=== PATIENT | female | born 1990 | race African-American/Black ===

== ENCOUNTER 2021-02-03 15:11 | Emergency (ER) | payer OTHER ==
--- NOTE | 2021-02-03 15:31 | EDM.PDOC ---
ED HPI GENERAL MEDICAL PROBLEM - General Chief Complaint: General Stated Complaint: "tired" Time Seen by Provider: 02/03/21 15:11 Source of Information: Reports: Patient, Old Records ([facility] EMR. No paper hospital chart available.) History Limitations: Reports: No Limitations - History of Present Illness INITIAL COMMENTS - FREE TEXT/NARRATIVE: The patient drove herself to the emergency room via private automobile for evaluation of multiple nonspecific complaints, including moderate nonspecific fatigue, arthralgias, etc., which occurred at work at 3 AM this past evening with the patient leaving work early. She has also had some nonspecific chills since that time with a temperature of 98.4 degrees. Her last menses a few days ago was somewhat heavy, however this did resolve after she took aspirin at that time. She denies any known exposure to infection. She also had some nonspecific dysuria and urinary frequency a couple of days ago, however the symptoms have since resolved. No recent history of abdominal pain, heartburn, nausea, diarrhea, melena, gross hematochezia, or any food intolerance, including fatty foods, etc. with normal bowel movement yesterday. The patient also denies any recent fever, cough, wheezing, dyspnea, etc.. Onset: Today, Gradual, Other (As above) Onset Date: 02/03/21 Onset Time: 03:00 Duration: Constant, Getting Worse Location: Reports: Generalized Quality: Reports: Ache Severity: Moderate Improves with: Reports: None Worsens with: Reports: None Context: Reports: Other (As above). Denies: Sick Contact, Trauma Associated Symptoms: Reports: Fever/Chills, Weakness (Nonspecific). 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 [No Known Home Meds] 09/02/20 [History] Past Medical History HYDRANT SETTER History: Reports: Dysfunctional Uterine Bleeding, . Denies: Spontaneous : 2 Para: 2 LMP (Approximate): Other (See Below) Other HYDRANT SETTER History: LMP 1 week ago. Full term without complications during pregnancies or deliveries Musculoskeletal History: Reports: Arthritis, Back Pain, Chronic, Osteoarthritis - History Comment History Comment: Occasional dehydration to not drink enough fluids. Social & Family History - Tobacco Use Tobacco Use Status *Q: Never Tobacco User Used Tobacco, but Quit: No Smoking Cessation Information Provided To Patient: No Second Hand Smoke Exposure: No Second Hand Smoke Education Provided: No - Caffeine Use Caffeine Use: Reports: Tea (1 cup/week). Denies: Coffee, Energy Drinks, Soda - Alcohol Use Alcohol Use History: No Days Per Week of Alcohol Use: 0 Number of Drinks Per Day: 0 Number of Drinks Per Day Comment: No previous DWIs, problems with alcohol abuse, etc. Total Drinks Per Week: 0 Alcohol Use in Last Twelve Months: No - Recreational Drug Use Recreational Drug Use: No Drug Use in Last 12 Months: No Recreational Drug Type: Denies: Amphetamines (Speed), Cocaine, Flunitrazepam, Heroin, Inhalants (Glues, Solvents, Aerosols), Marijuana/Hashish, Methamphetamine, Morphine, Oxycodone - Living Situation & Occupation Occupation: Employed ([employer]) ED ROS GENERAL - Review of Systems Review Of Systems: Comprehensive ROS is negative, except as noted in HPI. ED EXAM, GENERAL - Physical Exam Exam: See Below Exam Limited By: No Limitations General Appearance: Alert, WD/WN, No Apparent Distress, Anxious (Moderate) Eye Exam: Bilateral Eye: EOMI, Normal Inspection (No vertigo or nystagmus), PERRL Ears: Normal External Exam, Normal Canal, Hearing Grossly Normal, Normal TMs Nose: Normal Inspection, Normal Mucosa, No Blood Throat/Mouth: Normal Inspection, Normal Lips, Normal Teeth, Normal Gums, Normal Oropharynx, Normal Voice, No Airway Compromise. No: Dysphagia, Perioral Cyanosis Head: Atraumatic, Normocephalic. No: Facial Swelling, Facial Tenderness, Sinus Tenderness Neck: Normal Inspection, Supple, Non-Tender, Full Range of Motion. No: Carotid Bruit, Lymphadenopathy (L), Lymphadenopathy (R), Thyromegaly Respiratory/Chest: No Respiratory Distress, Lungs Clear, Normal Breath Sounds, No Accessory Muscle Use, Chest Non-Tender. No: Stridor, Accessory Muscle Use, Retractions Cardiovascular: Normal Peripheral Pulses, Regular Rate, Rhythm, No Edema, No Gallop, No JVD, No Murmur, No Rub. No: Gallop/S3, Gallop/S4, Friction Rub Peripheral Pulses: 2+: Radial (L), Radial (R) GI/Abdominal: Normal Bowel Sounds, Soft, Non-Tender, No Organomegaly, No Distention, No Abnormal Bruit, No Mass. No: Guarding (Female) Exam: Deferred Rectal (Female) Exam: Deferred Back Exam: Normal Inspection, Full Range of Motion. No: CVA Tenderness (L), CVA Tenderness (R), Muscle Spasm Extremities: Normal Inspection, Normal Range of Motion, Non-Tender, No Pedal Edema, Normal Capillary Refill. No: Jb's Sign Neurological: Alert, Oriented, CN II-XII Intact, Normal Cognition, Normal Gait, No Motor/Sensory Deficits Psychiatric: Anxious (Moderate), Depressed Mood (Mild to moderate) Skin Exam: Warm, Dry, Intact, Normal Color, No Rash. No: Diaphoretic, Wound/Incision Lymphatic: No Adenopathy Course - Vital Signs Last Recorded V/S: Last Vital Signs Temp 36.6 C 02/03/21 15:11 Pulse 88 02/03/21 15:11 Resp 16 02/03/21 15:11 BP 123/77 02/03/21 15:11 Pulse Ox 99 02/03/21 15:11 Vital Signs - 24 hr 02/03/21 15:11 Temperature [ 36.6 C Temporal] Pulse, 88 Peripheral [ Pulse Oximetry] Respiratory 16 Rate Blood Pressure 123/77 [Upper] O2 Sat by Pulse 99 Oximetry - Orders/Labs/Meds Orders: Active Orders 24 hr Category Date Time Status CULTURE URINE [RM] Routine Lab 02/03/21 15:36 Received Isolation [COMM] Routine Oth 02/03/21 15:32 Active Obtain Past Medical Record [OM.PC] Routine Oth 02/03/21 15:33 Active Peripheral IV Insertion Adult [OM.PC] Routine Oth 02/03/21 15:33 Ordered Labs: Laboratory Tests 02/03/21 02/03/21 02/03/21 Range/Units 14:30 15:47 15:47 WBC 4.3 (4.0-10.2) K/uL RBC 4.50 (3.77-5.09) M/uL Hgb 12.3 (11.7-15.5) g/dL Hct 38.5 (34.0-46.0) % MCV 85.6 (84.0-98.0) fL MCH 27.3 L (28.2-33.3) pg MCHC 31.9 (31.7-36.0) g/dL RDW 13.1 (11.2-14.1) % Plt Count 165 (150-350) K/uL Neut % (Auto) 23.5 L (45.0-80.0) % Lymph % (Auto) 59.3 H (10.0-50.0) % Reagan % (Auto) 12.0 (2.0-14.0) % Eos % (Auto) 4.7 (0.0-5.0) % Baso % (Auto) 0.5 (0.0-2.0) % Neut # (Auto) 1.00 L (1.40-7.00) K/uL Lymph # (Auto) 2.52 (0.50-3.50) K/uL Reagan # (Auto) 0.51 (0.00-1.00) K/uL Eos # (Auto) 0.20 (0.00-0.50) K/uL Baso # (Auto) 0.02 (0.00-0.20) K/uL PT 10.2 (9.5-12.0) SEC INR 1.0 APTT 25.4 (24.5-32.8) SEC Sodium (136-145) mmol/L Potassium (3.5-5.1) mmol/L Chloride (98-107) mmol/L Carbon Dioxide (21.0-32.0) mmol/L BUN (7-18) mg/dL Creatinine (0.51-1.17) mg/dL Est Cr Clr Drug Dosing Estimated GFR (MDRD) mL/min Glucose (70-99) mg/dL Calcium (8.5-10.1) mg/dL Total Bilirubin (0.2-1.0) mg/dL AST (15-37) U/L ALT (12-78) U/L Alkaline Phosphatase (46-116) IU/L Total Protein (6.4-8.2) g/dL Albumin (3.4-5.0) g/dL Amylase (25-115) U/L Lipase (73-393) U/L TSH, Ultra Sensitive (0.358-3.740) mIU/mL HCG, Qual (NEGATIVE) Specimen Type Urine Color Urine Appearance Urine pH (5.0-9.0) Ur Specific Homer (1.005-1.030) Urine Protein (NEGATIVE) mg/dL Urine Glucose (UA) (NEGATIVE) mg/dL Urine Ketones (NEGATIVE) mg/dL Urine Occult Blood (NEGATIVE) Urine Nitrite (NEGATIVE) Urine Bilirubin (NEGATIVE) Urine Urobilinogen (0.2-1.0) E.U./dL Ur Leukocyte Esterase (NEGATIVE) Urine RBC /HPF Urine WBC /HPF Ur Epithelial Cells /LPF Urine Bacteria (NONE TO FEW) /HPF SARS-CoV-2 RNA (AIRAM) Negative (NEGATIVE) 02/03/21 02/03/21 02/03/21 Range/Units 15:47 15:47 15:51 WBC (4.0-10.2) K/uL RBC (3.77-5.09) M/uL Hgb (11.7-15.5) g/dL Hct (34.0-46.0) % MCV (84.0-98.0) fL MCH (28.2-33.3) pg MCHC (31.7-36.0) g/dL RDW (11.2-14.1) % Plt Count (150-350) K/uL Neut % (Auto) (45.0-80.0) % Lymph % (Auto) (10.0-50.0) % Reagan % (Auto) (2.0-14.0) % Eos % (Auto) (0.0-5.0) % Baso % (Auto) (0.0-2.0) % Neut # (Auto) (1.40-7.00) K/uL Lymph # (Auto) (0.50-3.50) K/uL Reagan # (Auto) (0.00-1.00) K/uL Eos # (Auto) (0.00-0.50) K/uL Baso # (Auto) (0.00-0.20) K/uL PT (9.5-12.0) SEC INR APTT (24.5-32.8) SEC Sodium 140 (136-145) mmol/L Potassium 3.5 (3.5-5.1) mmol/L Chloride 108 H (98-107) mmol/L Carbon Dioxide 26.6 (21.0-32.0) mmol/L BUN 16 (7-18) mg/dL Creatinine 1.01 (0.51-1.17) mg/dL Est Cr Clr Drug Dosing TNP Estimated GFR (MDRD) > 60 mL/min Glucose 90 (70-99) mg/dL Calcium 8.4 L (8.5-10.1) mg/dL Total Bilirubin 0.2 (0.2-1.0) mg/dL AST 11 L (15-37) U/L ALT 23 (12-78) U/L Alkaline Phosphatase 55 (46-116) IU/L Total Protein 6.6 (6.4-8.2) g/dL Albumin 3.1 L (3.4-5.0) g/dL Amylase 72 (25-115) U/L Lipase 75 (73-393) U/L TSH, Ultra Sensitive 0.609 (0.358-3.740) mIU/mL HCG, Qual Negative (NEGATIVE) Specimen Type Urincc Urine Color Yellow Urine Appearance Clear Urine pH 7.0 (5.0-9.0) Ur Specific Homer 1.025 (1.005-1.030) Urine Protein Trace H (NEGATIVE) mg/dL Urine Glucose (UA) Negative (NEGATIVE) mg/dL Urine Ketones Negative (NEGATIVE) mg/dL Urine Occult Blood Negative (NEGATIVE) Urine Nitrite Negative (NEGATIVE) Urine Bilirubin Negative (NEGATIVE) Urine Urobilinogen 1.0 (0.2-1.0) E.U./dL Ur Leukocyte Esterase Negative (NEGATIVE) Urine RBC 0-5 /HPF Urine WBC 0-5 /HPF Ur Epithelial Cells Occasional /LPF Urine Bacteria Occasional (NONE TO FEW) /HPF SARS-CoV-2 RNA (AIRAM) (NEGATIVE) COVID-19 rapid test pending at time of patient discharge, however negative after completion of the emergency room note Urine specimen sent for culture and sensitivity Microbiology 02/03/21 14:30 Influenza Type A Antigen Screen - Final Nasal, Unspecified NEGATIVE INFLUENZA A VIRUS AG REFERENCE RANGE: NEGATIVE Influenza Type B Antigen Screen - Final NEGATIVE INFLUENZA B VIRUS AG REFERENCE RANGE: NEGATIVE Meds: Medications Discontinued Medications Generic Name Dose Route Start Last Admin Trade Name Rachael PRN Reason Stop Dose Admin Lactated Ringer's 1,000 mls @ 999 mls/hr 02/03/21 15:33 02/03/21 15:47 Ringers, Lactated IV 02/03/21 16:33 999 mls/hr .BOLUS ONE Administration Sodium Chloride 10 ml 02/03/21 15:33 Sodium Chloride 0.9% 10 Ml Syringe FLUSH ASDIRECTED PRN Keep Vein Open - Radiology Interpretation Free Text/Narrative:: None Departure - Departure Time of Disposition: 17:15 Disposition: Home, Self-Care 01 Condition: Good Clinical Impression: Hypocalcemia, Hypoalbuminemia, Mixed anxiety depressive disorder Fatigue Qualifiers: Fatigue type: unspecified Qualified Code(s): R53.83 - Other fatigue Hypermenorrhea Qualifiers: Menorrhagia type: with regular cycle Qualified Code(s): N92.0 - Excessive and frequent menstruation with regular cycle Osteoarthritis Qualifiers: Osteoarthritis location: multiple joints Osteoarthritis type: primary Qualified Code(s): M89.49 - Other hypertrophic osteoarthropathy, multiple sites - Discharge Information *PRESCRIPTION DRUG MONITORING PROGRAM REVIEWED*: Not Applicable *COPY OF PRESCRIPTION DRUG MONITORING REPORT IN PATIENT ELDER: Not Applicable Instructions: Fatigue, Metrorrhagia, [id number] Referrals: PCP,Unknown [Primary Care Provider] - Forms: ED Department Discharge Additional Instructions: 1. Follow up with your regular provider in 10-14 days as needed, if symptoms persist. Bring these discharge instructions with you to that visit. 2. Trinity diet including encouragement of oral fluids such as sports drinks, etc. for 24-48 hours as directed. Advance to regular diet as tolerated t hereafter. 3. Work excuse- See Form 4. Consider pelvic ultrasound by your regular provider, if your heavy periods persist 5. Immediately after this visit verify that your cellular telephone's voicemail has been activated and is empty. Also verify that your home telephone's answering machine is operating properly and has space to receive messages. Note that it is sometimes necessary for us to be able to contact you at a later date to discuss your medical care. 6. Please remember that we are ALWAYS here for you and want to answer any questions you may have. Feel free to call the hospital any time and we call you back KERA. 7. Maintain recommended quarantine until you have been notified of today's COVID-19 test results as discussed with return to previous social distancing, use of masks, etc., thereafter as per current recommended CDC guidelines Sepsis Event Note (ED) - Focused Exam Vital Signs: Vital Signs Temp Pulse Resp BP Pulse Ox 02/03/21 15:11 36.6 C 88 16 123/77 99 - Problem List & Annotations (1) Fatigue SNOMED Code(s): 59235663 Code(s): R53.83 - OTHER FATIGUE Status: Acute Priority: High Onset Date: 02/03/21 Annotation/Comment:: Nonspecific fatigue. TSH is normal in addition to other blood work. Symptomatic relief as per discharge instructions. [employer] work excuse was provided. COVID-19 test is still pending with isolation precautions discussed. Patient was given a 1 L IV bolus of lactated Ringer's. Qualifiers: Fatigue type: unspecified Qualified Code(s): R53.83 - Other fatigue (2) Hypermenorrhea SNOMED Code(s): 482503049 Code(s): N92.0 - EXCESSIVE AND FREQUENT MENSTRUATION WITH REGULAR CYCLE Status: Acute Priority: Medium Onset Date: ~02/01/21 Annotation/Comment:: No apparent previous problems with her menses. Close follow-up by regular provider as per discharge instructions. Her TSH is normal today. No evidence of current UTI, anemia, etc. Qualifiers: Menorrhagia type: with regular cycle Qualified Code(s): N92.0 - Excessive and frequent menstruation with regular cycle (3) Hypoalbuminemia SNOMED Code(s): 186002623 Code(s): E88.09 - OTH DISORDERS OF PLASMA-PROTEIN METABOLISM, NEC Status: Acute Priority: Medium Onset Date: 02/03/21 Annotation/Comment:: Observe for now (4) Hypocalcemia SNOMED Code(s): 0127179 Code(s): E83.51 - HYPOCALCEMIA Status: Chronic Priority: Medium Annotation/Comment:: Observe for now (5) Mixed anxiety depressive disorder SNOMED Code(s): 083381717 Code(s): F41.8 - OTHER SPECIFIED ANXIETY DISORDERS Status: Acute Priority: High Annotation/Comment:: Moderate control based on today's exam. Close follow-up by regular provider. (6) Osteoarthritis SNOMED Code(s): 686130954 Code(s): M19.90 - UNSPECIFIED OSTEOARTHRITIS, UNSPECIFIED SITE Status: Chronic Priority: Medium Annotation/Comment:: Chronic problem however previously stable. Nonspecific arthralgias during the last couple of days. Some anxiety component. Beginning URI infection? Qualifiers: Osteoarthritis location: multiple joints Osteoarthritis type: primary Qualified Code(s): M89.49 - Other hypertrophic osteoarthropathy, multiple sites - Problem List Review Problem List Initiated/Reviewed/Updated: Yes - My Orders Last 24 Hours: My Active Orders 02/03/21 15:32 Isolation [COMM] Routine 02/03/21 15:33 Obtain Past Medical Record [OM.PC] Routine Peripheral IV Insertion Adult [OM.PC] Routine 02/03/21 15:36 CULTURE URINE [RM] Routine - Assessment/Plan Last 24 Hours: My Active Orders 02/03/21 15:32 Isolation [COMM] Routine 02/03/21 15:33 Obtain Past Medical Record [OM.PC] Routine Peripheral IV Insertion Adult [OM.PC] Routine 02/03/21 15:36 CULTURE URINE [RM] Routine Assessment:: As above Plan: As above. Extensive precautions were given to the patient, who is in agreement with the treatment plan. See Patient Instructions for further treatment and plan.
[2021-02-03] MEDS ORDERED: Lactated Ringers 1,000 ML IV ONE (15:33)
[2021-02-03] MEDS ORDERED: Sodium Chloride 0.9% 10 ML Syringe FLUSH PRN (15:33)
[2021-02-03 16:14] LABS: PTT,PARTIAL THROMBOPLSTIN TIME 25.4 SEC (24.5-32.8)
[2021-02-03 16:23] LABS: CHLORIDE,CL 108 mmol/L (98-107); SODIUM,NA 140 mmol/L (136-145)
== END 2021-02-03 17:15 | disposition home or self-care (01) ==
LOC: LL.ED 15:11
DX: R53.83 Other fatigue (principal); N92.0 Excessive and frequent menstruation with regular cycle; M89.49 Other hypertrophic osteoarthropathy, multiple sites; F41.8 Other specified anxiety disorders; E83.52 Hypercalcemia; E88.09 Other disorders of plasma-protein metabolism, not elsewhere classified; Z20.822 Contact with and (suspected) exposure to COVID-19
CPT/HCPCS: 36415; 80053; 81001; 82150; 83690; 84443; 84703; 85025; 85610; 85730; 87086; 87088; 87186; 87635; 87804; 99283; J7120; 99284; U0002

== ENCOUNTER 2021-06-05 02:26 | Emergency (ER) | payer BC, OTHER ==
[2021-06-05] MEDS ORDERED: Aspirin 81 MG Tab.Chew ONE (02:38)
[2021-06-05] MEDS ORDERED: Nitroglycerin 0.4 MG Tab.SL SL ONE (02:45)
[2021-06-05] MEDS: Sodium Chloride 0.9% 10 ML Syringe FLUSH PRN ×2 (02:45→03:05)
[2021-06-05] MEDS ORDERED: Nitroglycerin 0.4 MG Tab.SL ONE (02:46)
--- NOTE | 2021-06-05 02:46 | EDM.PDOC ---
ED HPI GENERAL MEDICAL PROBLEM - General Chief Complaint: Chest Pain Stated Complaint: chest pain Time Seen by Provider: 06/05/21 02:30 Source of Information: Reports: Patient History Limitations: Reports: No Limitations - History of Present Illness INITIAL COMMENTS - FREE TEXT/NARRATIVE: She is brought to the emergency department by ambulance with complaints of chest pain. She reports a constant stabbing sharp severe pain in the center of her chest. Pain started about 9 hours earlier, but became much more severe when she was at work this morning. She also became very hot and sweaty. No nausea or vomiting. She rates the pain at 8/10 now. Was 10/10 at work. No dizziness or lightheadedness. No nasal congestion or stuffy head. No fever or chills. No history of previous similar problems. No cough. No history of heart disease. No underlying medical problems. No diabetes or hypertension. She is a non- smoker. No family history of cardiac disease. No hyperlipidemia. middle of chest Pain Score (Numeric/FACES): 8 - Related Data Allergies Allergy/AdvReac Type Severity Reaction Status Date / Time No Known Allergies Allergy Verified 06/05/21 02:27 Home Meds: Home Meds . 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 Full term without complications during pregnancies or deliveries Musculoskeletal History: Reports: Arthritis, Back Pain, Chronic, Osteoarthritis - History Comment History Comment: Occasional dehydration to not drink enough fluids. Social & Family History - Caffeine Use Caffeine Use: Reports: Tea (1 cup/week). 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 Denies: Chills HEENT: Denies: Eye Pain, Rhinitis, Sinus Problem, Throat Pain Respiratory: Denies: Shortness of Breath, Cough Cardiovascular: Reports: Chest Pain. Denies: Palpitations, Syncope GI/Abdominal: Denies: Abdominal Pain, Nausea, Vomiting : Denies: Dysuria, Flank Pain, Frequency, Urgency Skin: Reports: No Symptoms Neurological: Denies: Confusion, Dizziness Psychiatric: Denies: Anxiety, Confusion ED EXAM, GENERAL - Physical Exam Exam: See Below Exam Limited By: No Limitations General Appearance: Alert, WD/WN, No Apparent Distress Ears: Normal External Exam, Normal Canal, Normal TMs Nose: Normal Inspection, Normal Mucosa Throat/Mouth: Normal Inspection, Normal Lips, Normal Teeth, Normal Oropharynx, Normal Voice Head: Atraumatic, Normocephalic Neck: Normal Inspection, Non-Tender Respiratory/Chest: No Respiratory Distress, Lungs Clear, Normal Breath Sounds Cardiovascular: Regular Rate, Rhythm, No Murmur, Other (Sharp, increased pain with palpation over the left sternal border. This does reproduce her pain. Mild tenderness over the right sternal border.) GI/Abdominal: Normal Bowel Sounds, Soft, Non-Tender, No Mass Neurological: Alert, Oriented Psychiatric: Normal Affect, Normal Mood Skin Exam: Warm, Dry #1 Interpretation EKG Date: 06/05/21 Time: 02:30 Rhythm: NSR Rembrandt: Normal P-Wave: Present QRS: Normal ST-T: Normal QT: Normal EKG Interpretation Comments: Normal sinus rhythm. Normal EKG. #2 Interpretation EKG Date: 06/05/21 Time: 06:30 Rhythm: NSR Rembrandt: Normal P-Wave: Present QRS: Normal ST-T: Normal QT: Normal EKG Interpretation Comments: Normal EKG Course - Vital Signs Last Recorded V/S: Last Vital Signs Temp 36.7 C 06/05/21 02:30 Pulse 75 06/05/21 06:15 Resp 15 06/05/21 06:15 BP 86/59 L 06/05/21 06:15 Pulse Ox 100 06/05/21 06:15 - Orders/Labs/Meds Orders: Active Orders 24 hr Category Date Time Status Cardiac Monitoring [RC] . DIRECTED Care 06/05/21 03:59 Active Peripheral IV Care [RC] . DIRECTED Care 06/05/21 03:59 Active Chest 1V Frontal [CR] Stat Exams 06/05/21 02:47 Taken Sodium Chloride 0.9% [Saline Flush] Med 06/05/21 03:59 Active 10 ml FLUSH ASDIRECTED PRN Peripheral IV Insertion Adult [OM.PC] Routine Oth 06/05/21 03:59 Ordered Medication Orders Sodium Chloride (Sodium Chloride 0.9% 10 Ml Syringe) 10 ml FLUSH ASDIRECTED PRN PRN Reason: Keep Vein Open Last Admin: 06/05/21 03:05 Dose: 10 ml Documented by: Admin: 06/05/21 02:45 Dose: 10 ml Documented by: CARLOS Labs: Laboratory Tests 06/05/21 06/05/21 06/05/21 Range/Units 02:47 02:47 02:47 WBC 6.7 (4.0-10.2) K/uL RBC 4.55 (3.77-5.09) M/uL Hgb 12.3 (11.7-15.5) g/dL Hct 37.8 (34.0-46.0) % MCV 83.1 L (84.0-98.0) fL MCH 27.0 L (28.2-33.3) pg MCHC 32.5 (31.7-36.0) g/dL RDW 13.0 (11.2-14.1) % Plt Count 187 (150-350) K/uL Neut % (Auto) 35.4 L (45.0-80.0) % Lymph % (Auto) 52.0 H (10.0-50.0) % [place] % (Auto) 9.4 (2.0-14.0) % Eos % (Auto) 2.8 (0.0-5.0) % Baso % (Auto) 0.4 (0.0-2.0) % Neut # (Auto) 2.37 (1.40-7.00) K/uL Lymph # (Auto) 3.49 (0.50-3.50) K/uL [place] # (Auto) 0.63 (0.00-1.00) K/uL Eos # (Auto) 0.19 (0.00-0.50) K/uL Baso # (Auto) 0.03 (0.00-0.20) K/uL PT 10.0 (9.5-12.0) SEC INR 1.0 D-Dimer, Quantitative < 100 (0-400) ng/mL Sodium (136-145) mmol/L Potassium (3.5-5.1) mmol/L Chloride (98-107) mmol/L Carbon Dioxide (21.0-32.0) mmol/L Anion Gap (7-15) meq/L BUN (7-18) mg/dL Creatinine (0.51-1.17) mg/dL Est Cr Clr Drug Dosing Estimated GFR (MDRD) mL/min Glucose (70-99) mg/dL Lactic Acid (0.4-2.0) mmol/L Calcium (8.5-10.1) mg/dL Magnesium (1.8-2.4) mg/dL Total Bilirubin (0.2-1.0) mg/dL AST (15-37) U/L ALT (12-78) U/L Alkaline Phosphatase (46-116) IU/L Troponin I High Sens (<=51) ng/L NT-Pro-B Natriuret Pep (0-125) pg/mL Total Protein (6.4-8.2) g/dL Albumin (3.4-5.0) g/dL 06/05/21 06/05/21 06/05/21 Range/Units 02:47 02:47 06:00 WBC (4.0-10.2) K/uL RBC (3.77-5.09) M/uL Hgb (11.7-15.5) g/dL Hct (34.0-46.0) % MCV (84.0-98.0) fL MCH (28.2-33.3) pg MCHC (31.7-36.0) g/dL RDW (11.2-14.1) % Plt Count (150-350) K/uL Neut % (Auto) (45.0-80.0) % Lymph % (Auto) (10.0-50.0) % [place] % (Auto) (2.0-14.0) % Eos % (Auto) (0.0-5.0) % Baso % (Auto) (0.0-2.0) % Neut # (Auto) (1.40-7.00) K/uL Lymph # (Auto) (0.50-3.50) K/uL [place] # (Auto) (0.00-1.00) K/uL Eos # (Auto) (0.00-0.50) K/uL Baso # (Auto) (0.00-0.20) K/uL PT (9.5-12.0) SEC INR D-Dimer, Quantitative (0-400) ng/mL Sodium 142 (136-145) mmol/L Potassium 3.4 L (3.5-5.1) mmol/L Chloride 109 H (98-107) mmol/L Carbon Dioxide 25.9 (21.0-32.0) mmol/L Anion Gap 10.5 (7-15) meq/L BUN 15 (7-18) mg/dL Creatinine 1.02 (0.51-1.17) mg/dL Est Cr Clr Drug Dosing TNP Estimated GFR (MDRD) > 60 mL/min Glucose 98 (70-99) mg/dL Lactic Acid 0.6 (0.4-2.0) mmol/L Calcium 9.1 (8.5-10.1) mg/dL Magnesium 1.9 (1.8-2.4) mg/dL Total Bilirubin 0.2 (0.2-1.0) mg/dL AST 18 (15-37) U/L ALT 32 (12-78) U/L Alkaline Phosphatase 53 (46-116) IU/L Troponin I High Sens 4 4 (<=51) ng/L NT-Pro-B Natriuret Pep 23 (0-125) pg/mL Total Protein 7.0 (6.4-8.2) g/dL Albumin 3.3 L (3.4-5.0) g/dL Meds: Medications Generic Name Dose Route Start Last Admin Trade Name Rachael PRN Reason Stop Dose Admin Sodium Chloride 10 ml 06/05/21 03:59 06/05/21 03:05 Sodium Chloride 0.9% 10 Ml Syringe FLUSH 10 ml ASDIRECTED PRN Administration Keep Vein Open Discontinued Medications Generic Name Dose Route Start Last Admin Trade Name Rachael PRN Reason Stop Dose Admin Aspirin Confirm 06/05/21 02:38 06/05/21 06:18 Aspirin 81 Mg Tab.Chew Administered 06/05/21 02:39 Not Given Dose 324 mg .ROUTE .STK-MED ONE Aspirin 324 mg 06/05/21 02:47 06/05/21 02:38 Aspirin 81 Mg Tab.Chew PO 06/05/21 02:48 324 mg ONETIME ONE Administration Ketorolac Tromethamine 30 mg 06/05/21 02:55 06/05/21 02:55 Ketorolac 30 Mg/Ml Sdv IVPUSH 06/05/21 02:56 30 mg ONETIME ONE Administration Ketorolac Tromethamine Confirm 06/05/21 02:56 06/05/21 06:21 Ketorolac 30 Mg/Ml Sdv Administered 06/05/21 02:57 Not Given Dose 30 mg .ROUTE .STK-MED ONE Morphine Sulfate 4 mg 06/05/21 03:04 06/05/21 03:04 Morphine 4 Mg/Ml Syringe IVPUSH 06/05/21 03:05 4 mg ONETIME ONE Administration Morphine Sulfate Confirm 06/05/21 03:05 06/05/21 06:22 Morphine 4 Mg/Ml Syringe Administered 06/05/21 03:06 Not Given Dose 4 mg .ROUTE .STK-MED ONE Nitroglycerin 0.4 mg 06/05/21 02:45 06/05/21 02:45 Nitroglycerin 0.4 Mg Tab.Sl SL 06/05/21 02:46 0.4 mg ONETIME ONE Administration Nitroglycerin Confirm 06/05/21 02:46 06/05/21 06:19 Nitroglycerin 0.4 Mg Tab.Sl Administered 06/05/21 02:47 Not Given Dose 0.4 mg .ROUTE .STK-MED ONE - Radiology Interpretation Free Text/Narrative:: Portable view of the chest shows normal cardiac silhouette. Lungs are well- expanded. No free air. No pneumothorax. No infiltrates. - Re-Assessments/Exams Free Text/Narrative Re-Assessment/Exam: IV was started and oxygen applied. She appeared comfortable. She was given 4 baby aspirin and a sublingual nitroglycerin. The nitroglycerin did not help her chest pain but did give her a headache. She was then given 30 mg of Toradol IV. Free Text/Narrative Re-Assessment/Exam: 06/05/21 07:51 Now complaining only of some heaviness in the chest but no sharp pain. Slept okay through the night. No shortness of breath. Heart exam shows normal rate and rhythm. No murmurs. Lungs are clear with good air movement throughout. Persistent but less severe tenderness over the left sternal border. Repeat EKG is normal and troponin is still normal. Apparent costochondritis. Departure - Departure Time of Disposition: 07:55 Disposition: Home, Self-Care 01 Condition: Good Clinical Impression: Costochondritis, acute - Discharge Information *PRESCRIPTION DRUG MONITORING PROGRAM REVIEWED*: Not Applicable *COPY OF PRESCRIPTION DRUG MONITORING REPORT IN PATIENT ELDER: Not Applicable Instructions: Costochondritis, [id number] Referrals: PCP,Unknown [Primary Care Provider] - Forms: ED Department Discharge Care Plan Goals: Apply ice to the chest wall 15 minutes 3-4 times daily. Ibuprofen 800 mg 3 times daily with food for 5 to 7 days. Tylenol as needed for additional pain control. Okay to return to work. Follow-up as needed. Sepsis Event Note (ED) - Focused Exam Vital Signs: Vital Signs Temp Pulse Resp BP BP Pulse Ox 06/05/21 06:15 75 15 86/59 L 100 06/05/21 05:55 70 13 88/57 L 100 06/05/21 05:40 72 15 97/68 100 06/05/21 05:25 70 14 102/61 100 06/05/21 05:10 71 13 90/62 100 06/05/21 05:00 74 14 92/62 100 06/05/21 04:40 70 13 95/65 99 06/05/21 04:25 76 17 95/64 100 06/05/21 04:10 70 14 96/61 100 06/05/21 04:00 69 15 93/65 99 06/05/21 03:40 70 16 95/67 99 06/05/21 03:30 79 18 101/73 99 06/05/21 02:45 108/83 06/05/21 02:30 36.7 C 75 14 103/68 98 - Problem List & Annotations (1) Costochondritis, acute SNOMED Code(s): 03667106, 97039528 Code(s): M94.0 - CHONDROCOSTAL JUNCTION SYNDROME [TIETZE] Status: Acute Current Visit: Yes - My Orders Last 24 Hours: My Active Orders 06/05/21 02:47 Chest 1V Frontal [CR] Stat 06/05/21 03:59 Cardiac Monitoring [RC] . DIRECTED Peripheral IV Care [RC] . DIRECTED Sodium Chloride 0.9% [Saline Flush] 10 ml FLUSH ASDIRECTED PRN Peripheral IV Insertion Adult [OM.PC] Routine - Assessment/Plan Last 24 Hours: My Active Orders 06/05/21 02:47 Chest 1V Frontal [CR] Stat 09/20/21 03:59 Cardiac Monitoring [RC] . DIRECTED Peripheral IV Care [RC] . DIRECTED Sodium Chloride 0.9% [Saline Flush] 10 ml FLUSH ASDIRECTED PRN Peripheral IV Insertion Adult [OM.PC] Routine Plan: Discussed findings and treatment options. Apply ice to the chest wall 15 minutes 3-4 times daily. Ibuprofen 800 mg 3 times daily with food for 5 to 7 days. Tylenol as needed for additional pain control. Okay to return to work. Follow-up as needed.
[2021-06-05] MEDS ORDERED: Aspirin 81 MG Tab.Chew PO ONE (02:47)
[2021-06-05] MEDS ORDERED: Ketorolac 30 MG/ML SDV IVPUSH ONE (02:55)
[2021-06-05] MEDS ORDERED: Ketorolac 30 MG/ML SDV ONE (02:56)
[2021-06-05] MEDS ORDERED: Morphine 4 MG/ML Syringe IVPUSH ONE (03:04)
[2021-06-05] MEDS ORDERED: Morphine 4 MG/ML Syringe ONE (03:05)
[2021-06-05 03:23] LABS: CHLORIDE,CL 109 mmol/L (98-107); SODIUM,NA 142 mmol/L (136-145)
[2021-06-05 03:24] LABS: ANION GAP 10.5 meq/L (7-15)
== END 2021-06-05 08:10 | disposition home or self-care (01) ==
LOC: LL.ED 02:26
DX: M94.0 Chondrocostal junction syndrome [Tietze] (principal)
CPT/HCPCS: 36415; 71045; 80053; 83605; 83735; 83880; 84484; 85025; 85379; 85610; 93005; 93010; 96374; 96375; 99284; 99285-25; A9270-GY; J1885; J2270